=== PATIENT | female | born 1985 | race Two or more races ===

== ENCOUNTER 2020-10-03 11:30 | Emergency (ER) | payer MEDICAID ==
[~2020-10-03] VITALS: Ht 154.9 cm; Wt 83.6 kg
--- NOTE | 2020-10-03 11:54 | NUR ---
ERMD AT BEDSIDE FOR EVALUATION.
--- NOTE | 2020-10-03 12:07 | NUR ---
PATIENT WHEELED BACK FROM TRIAGE WITH CHIEF C/O "I CAN'T WALK." PATIENT C/O OF RIGHT LOWER BACK PAIN THAT RADIATES TO HER LEG AND FOOT, MAKING IT HARD TO WALK AT TIMES. PATIENT REPORTS ISSUE HAS BEEN ONGOING SINCE MARCH. PATIENT STATES IT HAS BEEN GETTING WORSE, REPORTS NUMBNESS IN HER THIGHS. PATIENT LAYING ON HER KNEES WITH HEAD DOWN, NAND, VSS,CALL LIGHT WITHIN REACH.
[2020-10-03] MEDS ORDERED: MORPHINE SULFATE 4 MG/ML, 1ML ONE (12:11)
--- NOTE | 2020-10-03 12:22 | NUR ---
20 GAUGE IV STARTED LEFT AC, BLOOD COLLECTED AND SENT TO LAB, PATIENT MEDICATED PER [facility].
[2020-10-03] MEDS ORDERED: SODIUM CHLORIDE FLUSH 10ML SYR IVF ONE (12:30)
[2020-10-03] MEDS ORDERED: MORPHINE SULFATE 4 MG/ML, 1ML IVPush PRN (12:30)
[2020-10-03 12:31] LABS: BASOPHILS % (AUTO) 1 % (0-1); EOSINOPHILS % (AUTO) 1 % (1-7); LYMPHOCYTES % (AUTO) 29 % (22-44); MEAN CORPUSCULAR HEMOGLOBIN 29.6 pg (27.0-34.8); MEAN CORPUSCULAR HGB CONC 34.2 g/dL (32.4-35.8); MEAN PLATELET VOLUME 8.8 fL (7.4-10.4); MONOCYTES % (AUTO) 11 % (2-9); NEUTROPHILS % (AUTO) 59 % (42-75); PLATELET COUNT 280 x10^3/uL (130-400); RED BLOOD COUNT 4.75 x10^6/uL (3.82-5.3)
[2020-10-03 12:41] LABS: ALBUMIN 3.7 g/dL (3.4-5.0); ANION GAP 6 mmol/L (5-15); CALCIUM 9.1 mg/dL (8.5-10.1); CHLORIDE 107 mmol/L (98-107)
--- NOTE | 2020-10-03 12:42 | NUR ---
PATIENT TO IMAGING.
[2020-10-03 12:46] LABS: CREATININE 0.74 mg/dL (0.55-1.02)
--- NOTE | 2020-10-03 13:22 | NUR ---
ERMD AT BEDSIDE TO DISCUSS POC.
--- NOTE | 2020-10-03 14:46 | NUR ---
BREAK RN: PT STATES THAT HER PAIN IS 1/10 SINCE MEDICATED FOR SAME. LYING ON LEFT SIDE IN POSITION OF COMFORT
[2020-10-03 14:47] VITALS: BP 161/99
--- NOTE | 2020-10-03 16:26 | NUR ---
Patient given discharge instructions and prescription and they have confirmed that they understand the instructions. Patient wheeled to private vehicle from ED in stable condition, friend driving.
== END 2020-10-03 16:27 | disposition home or self-care (01) ==
LOC: ED 16:20
DX: M54.16 Radiculopathy, lumbar region (principal); M51.26 Other intervertebral disc displacement, lumbar region
CPT/HCPCS: 36415; 72110; 72148; 80048; 82040; 84703; 85025; 96374; 99285; J2270